=== PATIENT | male | born 1935 | race Caucasian/White ===

== ENCOUNTER 2019-08-08 15:18 | Day surgery (SDC) | payer BC, MEDICARE ==
[2019-08-08] MEDS ORDERED: FENTANYL CITRATE INJ/PF 100 MCG/2 ML AMPUL ONE (16:00)
[2019-08-08] MEDS ORDERED: ONDANSETRON HCL INJ/PF 4 MG/2 ML SDV ONE (16:00)
[2019-08-08] MEDS ORDERED: DIPHENHYDRAMINE HCL 50 MG/ML VIAL ONE (16:00)
[2019-08-08] MEDS ORDERED: EPINEPHRINE INJ 1 MG/10 ML DISP.SYRIN ONE (16:01)
[2019-08-08] MEDS ORDERED: FLUMAZENIL INJ 0.5 MG/5 ML VIAL ONE (16:01)
[2019-08-08] MEDS ORDERED: NALOXONE HCL INJ/PF 0.4 MG/1 ML SDV ONE (16:01)
[2019-08-08] MEDS ORDERED: MIDAZOLAM 2 MG/2 ML INJ ONE (16:01)
[2019-08-08] MEDS ORDERED: GLUCAGON,HUMAN RECOMB 1 MG INJ ONE (16:01)
--- NOTE | 2019-08-08 16:42 | Operative Report ---
Operative Report DATE OF SURGERY: 08/08/19 Operative Report: Pre-op diagnosis: Anemia Post-op diagnosis: 1. Mild antral gastritis 2. Incompetent lower esophageal sphincter with reflux 3. Possible gastroparesis Surgery: Esophagogastroduodenoscopy with biopsy Medications: Versed 1mg Fentanyl 50 Mcg IV push Tissue removed: Antral biopsy for pathology Procedure: After informed consent obtained from patient, the throat was sprayed with Hurricane and conscious sedation was achieved. The upper endoscope was ins erted into the esophagus under direct vision and advanced into the stomach. The duodenum was entered and examined to the second part. Endoscope was then slowly pulled out of the patient as the mucosa was examined into details. Patient tolerated procedure well. Findings Esophagus: There was some refluxed food noted in the esophagus with a wide open GE junction. Residual food was also noted in the stomach. Antrum: Mild erythema Body: Normal Fundus: Normal Duodenum first part: Normal Duodenum second part: Normal Plan: Await pathology. Pantoprazole 20 mg daily and antireflux precautions OPERATION: .
[2019-08-08 18:40] VITALS: BP 151/86
== END 2019-08-08 18:32 | disposition home or self-care (01) ==
LOC: END 15:18
PROVIDERS: ATTEND Internal Medicine Gastroenterology
DX: K29.50 Unspecified chronic gastritis without bleeding (principal); B96.81 Helicobacter pylori [H. pylori] as the cause of diseases classified elsewhere; K22.0 Achalasia of cardia; K21.9 Gastro-esophageal reflux disease without esophagitis; D63.8 Anemia in other chronic diseases classified elsewhere; K57.30 Diverticulosis of large intestine without perforation or abscess without bleeding; E11.22 Type 2 diabetes mellitus with diabetic chronic kidney disease; I12.9 Hypertensive chronic kidney disease with stage 1 through stage 4 chronic kidney disease, or unspecified chronic kidney disease; N18.9 Chronic kidney disease, unspecified; Z86.73 Personal history of transient ischemic attack (TIA), and cerebral infarction without residual deficits; E03.9 Hypothyroidism, unspecified; E78.00 Pure hypercholesterolemia, unspecified; Z79.02 Long term (current) use of antithrombotics/antiplatelets; Z79.899 Other long term (current) drug therapy
CPT/HCPCS: 43239; 82962; 88305 ×2; J2250; J3010; J0171; J1200; J1610; J2310; J2405; J3490